=== PATIENT | female | born 1960 | race Caucasian/White ===

== ENCOUNTER → 2018-01-26 15:56 | Outpatient (CLI) | payer OTHER, SELFPAY ==
[2018-01-05 11:52] VITALS: BMI 29.2
--- NOTE | 2018-01-26 16:02 | BI_ITS ---
MAMMOGRAPHY - BILATERAL SCREENING REASON FOR EXAM: Female, 58 years old. Routine annual screening examination. PERTINENT HISTORY: Non-contributory. TECHNIQUE: Digital bilateral breast raymon (3D mammographic acquisition) in the CC and MLO projections. 2-D mediolateral oblique (MLO) and craniocaudad (CC) views of both breasts were obtained. CAD: Full Field Digital Mammography with Computer Added Detection was performed. COMPARISON: Comparison is made with prior study dated January 24, 2017 and December 27, 2015. FINDINGS: Breast Composition: There are scattered areas of fibroglandular density. There are no dominant masses or suspicious calcifications. Stable appearance of the bilateral axillary lymph nodes. No other significant abnormalities are identified. There has been no significant change since the prior study. BI/SCREENING MAMM (CAD), BILAT IMPRESSION: Stable bilateral screening mammogram. Yearly follow-up mammogram recommended. (A) ASSESSMENT CATEGORY: BIRADS Category 2: Benign. A letter regarding these results will be sent to the patient by the facility within 30 days. Approximately 10% of breast cancers are not detected by mammography. A normal mammogram should not delay biopsy of a clinically suspicious abnormality. [id number] Electronically Signed: Trenton Fuentes MD at 14:21 EST Tel [phone], Service support ,
== END ==
PROVIDERS: Family Provider Family Medicine; PCP Family Medicine; Referring Provider Obstetrics & Gynecology; Visit Provider Obstetrics & Gynecology
DX: Z12.31 Encounter for screening mammogram for malignant neoplasm of breast (principal)
CPT/HCPCS: 77063; 77067

== ENCOUNTER 2018-05-19 06:25 | Day surgery (SDC) | payer OTHER, SELFPAY ==
--- NOTE | 2018-05-15 12:22 | EKG12_ITS ---
Test Reason : PREOP Blood Pressure : / mmHG Vent. Rate : 063 BPM Atrial Rate : 063 BPM P-R Int : 174 ms QRS Dur : 098 ms QT Int : 422 ms P-R-T Axes : 070 061 037 degrees QTc Int : 431 ms Normal sinus rhythm Normal ECG Confirmed by TAYLER ROME, GRACIELA ([id number]), multimedia editor ROMÁN SYKES ([id number]) on 05/19/2018 9:46:17 AM Referred By: Sonal Ingram Confirmed By:GRACIELA LESTER MD
[2018-05-19] MEDS: Cefazolin 2 GM in 0.9% Normal Saline 100 ML IV (07:00)
[2018-05-19 07:01] VITALS: BP 124/92; PULSE 68; RESP 14; TEMP 36.5; O2SAT 97; BMI 29.7
[2018-05-19 09:11] VITALS: BP 123/86; BP 124/92; PULSE 68; RESP 16; TEMP 36.6; O2SAT 95
[2018-05-19 09:15] VITALS: BP 124/92; BP 129/86; PULSE 66; RESP 18; O2SAT 97
--- NOTE | 2018-05-19 09:19 | DCINST_ITS ---
Discharge Diet: No Restrictions Discharge Activity: May not drive while taking narcotic pain medications., May Shower Lifting Restrictions: 5 pounds Additional Activity Instructions:: no strenuous activity, no exercise, no intercourse, nothing per vagina except continue estrogen cream as instructed Call your doctor if your incision/area has: Continuous Slow Oozing, Sudden Increased Bleeding, Foul Smelling Discharge Call your doctor if you observe: Fever of 101 or Higher, Inability to urinate, Inability to have a bowel movement, Shortness of breath, Chest pain, Calf discomfort Suture Line Care: Avoid Pulling/Pushing, Avoid Pinching/Bending Allergies/Adverse Reactions: Allergies No Known Allergies Allergy (Verified 01/05/18 11:53) Medications to take at Discharge Calcium (Elemental) [Os-Jovi 500] 500 mg PO DAILY@0800 05/13/18 Cholecalciferol (VIT D3) [Vitamin D3] 1,000 unit PO DAILY 05/13/18 Estradiol [Estrace Vaginal Cream] 1 dose VAGINAL MOWEFR 05/13/18 Multivit with Calcium,Iron,Min [Multiple Vitamins For Women] 1 each PO DAILY 05/13/18 Rizatriptan Benzoate [Maxalt] 10 mg PO PRN PRN 05/13/18 Sulfamethoxazole/Trimethoprim [Bactrim Ds Tablet] 1 each PO BID 05/13/18 Oxycodone HCl/Acetaminophen [Percocet 5/325] 1 - 2 tab PO Q6H PRN PRN 7 Days #30 tab 05/19/18 The following prescriptions were given: Oxycodone HCl/Acetaminophen [Percocet 5/325] 1 - 2 tab PO Q6H PRN PRN 7 Days #30 tab PRN Reason: Pain Orders to be completed after discharge: 12 Lead EKG [[facility]] Time Frame: 05/13/18, Facility: [facility], Location: Cardi[facility] Services Post Void Residual Bladder [[place]] Location: None Selected Primary Care Physician: Jason Jimenez DO [Primary Care Provider] - Test Results: Test results from this visit will be discussed in further detail at your follow- up appointment, if applicable. Please Follow Up With: Sonal Ingram MD When: 2 weeks, call for appt. Proposed Discharge Date: 05/19/18
--- NOTE | 2018-05-19 09:21 | OP.PCM_ITS ---
Problem List (1) Urethral hypermobility Status: Acute (2) Stress incontinence Status: Acute Report of Operation Date of Procedure: 05/19/18 Pre-Operative Diagnosis: stress urinary incontinence, urethral hypermobility Post-Operative Diagnosis: same Surgery/Procedure Performed:: midurethral sling, cystoscopy Description of Surgical Findings:: no complications, no mesh in bladder or urethra at conclusion of case. Type of Anesthesia:: General Special Medications: Ancef Specimen's removed: none Estimated Blood Loss (mL): 75cc Description of Procedure: The patient is a 58-year-old female presented to the office with complaints of significant urinary incontinence. She underwent evaluation with pelvic exam, cystoscopy and urodynamic studies. At this time we discussed the options and she agreed to proceed with surgical intervention for definitive treatment of her incontinence. All risks benefits and alternatives were discussed preoperatively and informed consent was obtained. Patient was taken to the operating room and placed on the operating room table. She was padded and supported appropriately. Anesthesia monitored the head, neck, airway, IV access, vital signs throughout the case. Once anesthesia was appropriately administered the patient was prepped and draped in usual sterile fashion. She was placed into dorsal lithotomy and Trendelenburg position. A 16 Swedish Youngblood catheter was inserted and the bladder was drained. The mid urethra was identified and injected submucosally with lidocaine with epinephrine. A midline vertical incision approximately 1 cm in length was then made. Both sharp and blunt dissection ensued until the space on either side of the urethra was open appropriately for passage of the sling and trochars. At this time the alters sling and trochars were passed without difficulty. The sling was flat against the urethra without excess tension. This was done using the tensioning suture and a right angle clamp. The midline incision was then closed using r unning interlocking 2-0 Vicryl. The vagina the Youngblood catheter was removed and a cystourethroscopy was 70 degree lens was performed. There were no foreign bodies seen within the urinary bladder or the urethra. The bladder mucosa and the urethral mucosa were visualized in their entirety. There were no masses, ulcerations, foreign bodies or hemorrhage from any area. A small amount of fluid was left within the urinary bladder and the patient was awakened and taken to the recovery room in good condition. There were no complications during this procedure. Grafts/Implants Used: Altis midurethral sling - Complications none - Admit VTE Documentation VTE Present on Admission: Yes VTE Mechan Device Prophylaxis: SCD's VTE Pharm Prophylaxis ordered?: No Reason prophylaxis not ordered:: Treatment Not Indicated
[2018-05-19 09:30] VITALS: BP 124/92; BP 134/86; PULSE 57; RESP 18; TEMP 36.2; O2SAT 98
[2018-05-19] MEDS: HYDROcodone Bitartrate/Apap 5/325 Tablet PO (10:43)
[2018-05-19 11:13] VITALS: BP 124/92; BP 134/73; PULSE 65; RESP 14; TEMP 37.3; O2SAT 98
== END 2018-05-19 11:32 | disposition home or self-care (01) ==
LOC: SDC 06:25 → AC 06:26
PROVIDERS: Family Provider Family Medicine; PCP Family Medicine; Referring Provider Urology; Visit Provider Urology
PROC: 0TJB8ZZ Inspection of Bladder, Via Natural or Artificial Opening Endoscopic (ICD-10-PCS; CPT 57288; principal; 2018-05-19 07:50)
DX: N39.3 Stress incontinence (female) (male) (principal); N36.41 Hypermobility of urethra; N95.2 Postmenopausal atrophic vaginitis; Z79.2 Long term (current) use of antibiotics; Z79.899 Other long term (current) drug therapy
CPT/HCPCS: 00860; 57288; 93005; J7120; J2405

== ENCOUNTER → 2019-02-01 07:36 | Outpatient (CLI) | payer OTHER, SELFPAY ==
--- NOTE | 2019-02-01 07:39 | BI_ITS ---
MAMMOGRAPHY - BILATERAL SCREENING 3-D TOMOSYNTHESIS REASON FOR EXAM: Female, 59 years old. Yearly screening mammogram. PERTINENT HISTORY: No significant family history. TECHNIQUE: 2-D mammograms and 3-D Tomosynthesis of the breast (s) were performed. CAD was performed. COMPARISON: January 26, 2018, January 24, 2017 FINDINGS: The breast composition is composed of scattered fibroglandular density. Scattered benign calcifications are seen. No dense spiculated masses or suspicious microcalcifications are identified. No architectural distortion is identified. There is no skin thickening or retraction. There has been no significant change since the prior study. BI/SCREEN MAMM (CAD) W/SARAH BILAT IMPRESSION: No mammographic signs of malignancy. Routine yearly mammograms recommended. ASSESSMENT CATEGORY: BIRADS Category 2: Benign. A letter regarding these results will be sent to the patient by the facility within 30 days. FOLLOW UP RECOMMENDATION: Yearly follow up mammogram recommended. (A) Approximately 10% of breast cancers are not detected by mammography. A normal mammogram should not delay biopsy of a clinically suspicious abnormality. Electronically Signed: Eusebio Ojeda MD at 17:24 EST , Service support ,
== END ==
PROVIDERS: Family Provider Family Medicine; PCP Family Medicine; Referring Provider Obstetrics & Gynecology; Visit Provider Obstetrics & Gynecology
DX: Z12.31 Encounter for screening mammogram for malignant neoplasm of breast (principal)
CPT/HCPCS: 77063; 77067

== ENCOUNTER → 2019-02-16 08:13 | Outpatient (CLI) | payer OTHER, SELFPAY ==
[2019-02-01 08:29] VITALS: BMI 29.7
[2019-02-16 12:27] LABS: ALB/GLOB Ratio 1.3 RATIO (0.9-2.4); AST(SGOT) 17 U/L (15-37); Alanine Aminotransfer ALT/SGPT 25 U/L (13-56); Albumin, Serum 3.7 g/dL (3.2-5.0); Alkaline Phosphatase 60 U/L (45-117); Anion Gap 3 (5-15); BUN 17 mg/dL (7-18); BUN/Creat Ratio 18.1 RATIO (10-20); Calcium,Total 8.8 mg/dL (8.5-10.1); Chloride 109 mmol/L (98-107); Cholesterol 213 mg/dL (200); Creatinine, Serum 0.94 mg/dL (0.55-1.02); EST Glomerular Filtration Rate 65 mL/min (>60); Est Glom Filt Rate - Afr Amer 78 mL/min (>60); Globulin 2.8 g/dL (2.2-4.2); Glucose 76 mg/dL (74-106); High Density Lipoprotein 49 mg/dL; Potassium 4.1 mmol/L (3.5-5.1); Protein, Total 6.5 g/dL (6.4-8.2); Sodium Level 142 mmol/L (136-145); Triglycerides 92 mg/dL; Very Low Density Lipoprotein 18 mg/dL (5-40)
[2019-02-16 12:35] LABS: Vitamin D,25 Hydroxy 25.5 ng/mL (29.95-100.01)
[2019-02-16 12:39] LABS: Absolute Lymphocyte Count 1.31 X10^3/uL (0.83-4.51); Absolute Neutrophil Count 3.8 X10^3/uL (2.0-7.7); Basophil# 0.04 X10^3/uL; Basophil% 0.7 % (0-1); Eosinophil# 0.18 X10^3/uL; Eosinophils% 3.1 % (0-5); Hematocrit 42.2 % (37-47); Hemoglobin 13.4 g/dL (12.0-15.0); Lymphocyte # 1.31 X10^3/ul (4.0); Lymphocyte % 22.4 % (19-41); Mean Corp Hgb Conc 31.8 g/dL (32-36); Mean Corpuscular Hgb 30.8 pg (27.0-32.0); Mean Platelet Vol. 9.8 fl (6.2-12.0); Monocyte# 0.48 X10^3/uL; Monocyte% 8.2 % (0-10); NRBC Flagged by Analyzer 0 % (0-5); Neutrophil # 3.82 X10^3/uL (2.7-7.7); Neutrophil % 65.4 % (47-70); Platelet Count 232 K/mm3 (150-450); RBC Distribution Width SD 50.5 fl (35.1-43.9); Red Blood Count 4.35 M/mm3 (4.2-5.4); White Blood Count 5.8 K/mm3 (4.4-11.0)
== END ==
PROVIDERS: Family Provider Family Medicine; PCP Family Medicine; Visit Provider Family Medicine
DX: Z00.00 Encounter for general adult medical examination without abnormal findings (principal); M85.80 Other specified disorders of bone density and structure, unspecified site
CPT/HCPCS: 36415; 80053; 80061; 82306; 85025

== ENCOUNTER → 2019-03-25 09:09 | Outpatient (CLI) | payer OTHER, SELFPAY ==
[2019-02-01 08:29] VITALS: BMI 29.7
--- NOTE | 2019-03-25 09:14 | BD_ITS ---
STUDY: DUAL ENERGY X-RAY ABSORPTIOMETRY / DXA REASON FOR EXAM: Female, 59 years old. RNP -- HX OF HRT -- TAKES CALCIUM, MULTIVITAMIN AND VITAMIN D -- DOES MODERATE AMOUNT OF EXERCISE -- FAMILY HX OF OSTEO -- NO JERAMY TECHNIQUE: Bone Mineral Density (BMD) measurements of lumbar spine and bilateral hips were obtained. COMPARISON: None. FINDINGS: Lumbar Spine (L1-L4): g/cm2 (0.912) / T-score (-2.2) / Z-score (-1.0) Findings are suggestive of osteopenia with a moderate fracture risk. Left Femur Total: g/cm2 (0.849) / T-score (-1.3) / Z-score (-0.3) Left Femoral Neck: g/cm2 (0.797) / T-score (-1.7) / Z-score (-0.5) Right Femur Total: g/cm2 (0.780) / T-score (-1.8) / Z-score (-0.9) Right Femoral Neck: g/cm2 (0.751) / T-score (-2.1) / Z-score (-0.8) BD/Dexa Bone Density Study IMPRESSION: The patient is considered osteopenic as outlined below according to World Aidan Organization (WHO) criteria with a moderate fracture risk. Reference Information: The T-score is the number of standard deviations above or below the standard which is normal for young adults at their peak bone mineral density. The World Health Organization (WHO) interprets the T-scores as follows: Above -1 Normal bone density Between -1 and -2.5 Osteopenia Equal to / or below -2.5 Osteoporosis As a practical clinical guideline, osteopenia may be graded as follows: Mild -1 through -1.5 Moderate -1.6 through -2.0 Severe -2.1 through -2.4 The Z-score is the number of standard deviations above or below age-matched controls. A Z-score of less than -1.5 would be considered abnormal. References: 1. NIH Osteoporosis and Related Bone Diseases http://www.osteo.org 2. International Society for Clinical Densitometry http://www.iscd.org 3. National Osteoporosis Foundation http://www.nof.org Electronically Signed: Trenton Fuentes, at 13:20 EST , Service support ,
== END ==
PROVIDERS: Family Provider Family Medicine; PCP Family Medicine; Referring Provider Family Medicine; Visit Provider Family Medicine
DX: M81.0 Age-related osteoporosis without current pathological fracture (principal); M85.80 Other specified disorders of bone density and structure, unspecified site; E55.9 Vitamin D deficiency, unspecified
CPT/HCPCS: 77080

== ENCOUNTER → 2020-01-03 18:06 | Outpatient (CLI) | payer OTHER, SELFPAY ==
[2019-02-01 08:29] VITALS: BMI 29.7
== END ==
PROVIDERS: PCP Family Medicine; Referring Provider Family Medicine; Visit Provider Family Medicine
DX: Z03.818 Encounter for observation for suspected exposure to other biological agents ruled out (principal)
CPT/HCPCS: 87635; C9803; U0003

== ENCOUNTER 2021-04-24 14:26 | Outpatient (CLI) | payer OTHER, SELFPAY | END 2021-04-24 23:59 | disposition home or self-care (01) | LOC: IMMUN 04-25 14:38 | PROVIDERS: PCP Family Medicine; Visit Provider Family Medicine | DX: Z23 Encounter for immunization (principal) ==

== ENCOUNTER → 2022-07-11 | Outpatient (CLI) | payer OTHER, SELFPAY ==
[2022-07-11 15:25] LABS: Absolute Lymphocyte Count 1.82 X10^3/uL (0.83-4.51); Absolute Neutrophil Count 4.8 X10^3/uL (2.0-7.7); Basophil# 0.03 X10^3/uL; Basophil% 0.4 % (0-1); Eosinophil# 0.24 X10^3/uL; Eosinophils% 3.2 % (0-5); Hematocrit 45.8 % (37-47); Hemoglobin 14.7 g/dL (12.0-15.0); Lymphocyte # 1.82 X10^3/ul (0.83-4.51); Lymphocyte % 24.1 % (19-41); Mean Corp Hgb Conc 32.1 g/dL (32-36); Mean Corpuscular Volume 96.6 fL (81-99); Mean Platelet Vol. 9.9 fl (6.2-12.0); Monocyte# 0.68 X10^3/uL; NRBC Flagged by Analyzer 0 % (0-5); Neutrophil # 4.75 X10^3/uL (2.7-7.7); Platelet Count 301 K/mm3 (150-450); RBC Distribution Width CV 14.1 % (11.6-14.6); RBC Distribution Width SD 50.7 fl (35.1-43.9); Red Blood Count 4.74 M/mm3 (4.2-5.4); White Blood Count 7.5 K/mm3 (4.4-11.0)
[2022-07-11 15:34] LABS: Color, Urine Yellow (Yellow); Glucose, Dipstick Normal (Normal); Ketone-Dipstick Negative (Negative); Leukocyte Esterase-Dipstick Negative /ul (Negative); Nitrite-Dipstick Negative (Negative); Occult Blood-Urine 10 /ul (Negative); Protein-Dipstick 15 mg/dl (Negative); Urine Bilirubin Dipstick Negative (Negative); Urine Clarity Clear (Clear); Urine Urobilinogen Normal (Normal)
[2022-07-11 15:47] LABS: ALB/GLOB Ratio 1.3 RATIO (0.9-2.4); AST(SGOT) 17 U/L (15-37); Alanine Aminotransfer ALT/SGPT 28 U/L (13-56); Alkaline Phosphatase 66 U/L (45-117); Anion Gap 9 (5-15); BUN 18 mg/dL (7-18); BUN/Creat Ratio 20.7 RATIO (10-20); Calcium,Total 9.4 mg/dL (8.5-10.1); Chloride 106 mmol/L (98-107); Cholesterol 212 mg/dL (200); Creatinine, Serum 0.87 mg/dL (0.55-1.02); EST Glomerular Filtration Rate 70 mL/min (>60); Est Glom Filt Rate - Afr Amer 84 mL/min (>60); Globulin 3.1 g/dL (2.2-4.2); Glucose 88 mg/dL (74-106); High Density Lipoprotein 41 mg/dL; Potassium 4.2 mmol/L (3.5-5.1); Protein, Total 7.1 g/dL (6.4-8.2); Sodium Level 142 mmol/L (136-145); Triglycerides 239 mg/dL; Very Low Density Lipoprotein 48 mg/dL (5-40)
== END | disposition home or self-care (01) ==
LOC: BFHLAB 13:05
PROVIDERS: PCP Family Medicine; Referring Provider Family Medicine; Visit Provider Family Medicine
DX: Z00.00 Encounter for general adult medical examination without abnormal findings (principal)
CPT/HCPCS: 36415; 80053; 80061; 81002; 85025

== ENCOUNTER → 2023-01-21 | Outpatient (CLI) | payer OTHER, SELFPAY ==
--- NOTE | 2023-01-21 09:18 | RAD_ITS ---
INDICATION: R TOE PAIN EXAMINATION/TECHNIQUE: X-RAY - RIGHT FOOT XR Toes Min 2 Views COMPARISON: None. FINDINGS: Subacute minimally displaced fracture of the head of the fifth metacarpal. No blastic or lytic lesions. Mild scattered degenerative changes. Soft tissue swelling of the fifth digit. RAD/Toe(s) Min 2 Views IMPRESSION: Subacute minimally displaced fracture of the head of the fifth metacarpal. Electronically Signed: Wally Eckert MD at 21:58 EST ,
--- NOTE | 2023-01-21 09:18 | RAD_ITS ---
ACR Level 3 findings have been noted. An addendum which confirms receipt of the report will follow. INDICATION: PAIN X 10 DAYS, TRAUMA EXAMINATION/TECHNIQUE: X-RAY - RIGHT XR Foot Min 3 Views COMPARISON: None. FINDINGS: Subacute minimally displaced fracture of the head of the fifth metacarpal. No blastic or lytic lesions. Mild scattered degenerative changes. Soft tissue swelling of the fifth digit. RAD/Foot min 3 Views IMPRESSION: Subacute minimally displaced fracture of the head of the fifth metacarpal. Electronically Signed: Wally Eckert MD at 21:57 EST ,
== END | disposition home or self-care (01) ==
LOC: MTRAD 08:42
PROVIDERS: PCP Family Medicine; Referring Provider Family Medicine; Visit Provider Family Medicine
DX: M79.674 Pain in right toe(s) (principal)
CPT/HCPCS: 73630; 73660

== ENCOUNTER → 2023-03-06 | Outpatient (CLI) | payer OTHER, SELFPAY ==
--- NOTE | 2023-03-06 13:32 | BI_ITS ---
MAMMOGRAPHY - BILATERAL SCREENING 3-D TOMOSYNTHESIS REASON FOR EXAM: Female, 63 years old. Routine annual screening mammogram. PERTINENT HISTORY: No significant family history. TECHNIQUE: 2-D mammograms and 3-D Tomosynthesis of the breast (s) were performed. CAD was performed. COMPARISON: February 01, 2019, January 26, 2018 FINDINGS: The breast composition is composed of scattered fibroglandular density. Normal axillary lymph nodes and benign calcifications are stable. No dominant masses, suspicious microcalcifications, asymmetries, skin thickening or nipple retraction. BI/SCRN MAMM (CAD)W/SARAH BILAT IMPRESSION: No interval change mammographic signs of malignancy. Routine yearly mammogram recommended. ASSESSMENT CATEGORY: BIRADS Category 1: Negative. A letter regarding these results will be sent to the patient by the facility within 30 days. FOLLOW UP RECOMMENDATION: Yearly follow up mammogram recommended. (A) Approximately 10% of breast cancers are not detected by mammography. A normal mammogram should not delay biopsy of a clinically suspicious abnormality. Electronically Signed: Eusebio Ojeda MD at 15:24 EST ,
--- NOTE | 2023-03-06 13:35 | BD_ITS ---
STUDY: DUAL ENERGY X-RAY ABSORPTIOMETRY / DXA REASON FOR EXAM: Female, 63 years old. Osteopenia -- AGE RELATED OSTEP W/O CURRENT PATHOLOGICAL FRACTURE TECHNIQUE: Bone Mineral Density (BMD) measurements of lumbar spine and bilateral hips were obtained. COMPARISON: Comparison is made with prior study dated September 23, 2019. FINDINGS: Lumbar Spine (L1-L4): g/cm2 (0.724) / T-score (-2.9) / Z-score (-1.2) Findings are suggestive of osteoporosis with a high fracture risk. Left Femur Total: g/cm2 (0.778) / T-score (-1.3) / Z-score (-0.2) Left Femoral Neck: g/cm2 (0.648) / T-score (-1.8) / Z-score (-0.3) Right Femur Total: g/cm2 (0.719) / T-score (-1.8) / Z-score (-0.7) Right Femoral Neck: g/cm2 (0.559) / T-score (-2.6) / Z-score (-1.2) The T-Scores on the most recent prior examination were: Lumbar Spine (L1-L4): There has been worsening of bone density since the previous examination. Left Femur Total: which represents a worsening of 1.3%. Right Femur Total: which represents a worsening of 0.1%. BD/Dexa Bone Density Study IMPRESSION: The patient is considered osteoporotic as outlined below according to World Aidan Organization (WHO) criteria with a high fracture risk. There has been worsening of bone density since the previous examination. Reference Information: The T-score is the number of standard deviations above or below the standard which is normal for young adults at their peak bone mineral density. The World Health Organization (WHO) interprets the T-scores as follows: Above -1 Normal bone density Between -1 and -2.5 Osteopenia Equal to / or below -2.5 Osteoporosis As a practical clinical guideline, osteopenia may be graded as follows: Mild -1 through -1.5 Moderate -1.6 through -2.0 Severe -2.1 through -2.4 The Z-score is the number of standard deviations above or below age-matched controls. A Z-score of less than -1.5 would be considered abnormal. References: 1. NIH Osteoporosis and Related Bone Diseases www osteo.org 2. International Society for Clinical Densitometry www iscd.org 3. National Osteoporosis Foundation www nof.org Electronically Signed: Trenton Fuentes MD at 15:33 EST ,
== END | disposition home or self-care (01) ==
LOC: OPBD 13:27
PROVIDERS: PCP Family Medicine; Referring Provider Obstetrics & Gynecology; Visit Provider Obstetrics & Gynecology
DX: Z12.31 Encounter for screening mammogram for malignant neoplasm of breast (principal); M85.80 Other specified disorders of bone density and structure, unspecified site
CPT/HCPCS: 77063; 77067; 77080

== ENCOUNTER → 2023-10-29 | Outpatient (CLI) | payer OTHER, SELFPAY ==
[2023-10-29 10:20] LABS: Erythrocyte Sedimentation Rate < 1 mm/hr (0-30)
[2023-10-29 10:23] LABS: Absolute Lymphocyte Count 0.94 X10^3/uL (0.83-4.51); Absolute Neutrophil Count 7.2 X10^3/uL (2.0-7.7); Basophil# 0.02 X10^3/uL; Basophil% 0.2 % (0-1); Eosinophil# 0.01 X10^3/uL; Eosinophils% 0.1 % (0-5); Hematocrit 43.5 % (37-47); Hemoglobin 13.8 g/dL (12.0-15.0); Lymphocyte # 0.94 X10^3/ul (0.83-4.51); Lymphocyte % 11.1 % (19-41); Mean Corp Hgb Conc 31.7 g/dL (32-36); Mean Corpuscular Hgb 30.4 pg (27.0-32.0); Mean Corpuscular Volume 95.8 fL (81-99); Mean Platelet Vol. 9.6 fl (6.2-12.0); Monocyte% 3.5 % (0-10); NRBC Flagged by Analyzer 0 % (0-5); Neutrophil # 7.18 X10^3/uL (2.7-7.7); Neutrophil % 84.6 % (47-70); Platelet Count 297 K/mm3 (150-450); RBC Distribution Width CV 14.2 % (11.6-14.6); RBC Distribution Width SD 50.2 fl (35.1-43.9); Red Blood Count 4.54 M/mm3 (4.2-5.4); White Blood Count 8.5 K/mm3 (4.4-11.0)
[2023-10-29 11:00] LABS: ALB/GLOB Ratio 1.3 RATIO (0.9-2.4); AST(SGOT) 14 U/L (15-37); Alanine Aminotransfer ALT/SGPT 24 U/L (13-56); Albumin, Serum 3.8 g/dL (3.2-5.0); Alkaline Phosphatase 56 U/L (45-117); Anion Gap 4 (5-15); BUN 17 mg/dL (7-18); BUN/Creat Ratio 19.6 RATIO (10-20); CRP 3.33 mg/L (0.0-3.0); Calcium,Total 8.9 mg/dL (8.5-10.1); Chloride 110 mmol/L (98-107); Cholesterol 221 mg/dL (200); Creatinine, Serum 0.87 mg/dL (0.55-1.02); EST Glomerular Filtration Rate 70 mL/min (>60); Est Glom Filt Rate - Afr Amer 84 mL/min (>60); Globulin 2.9 g/dL (2.2-4.2); Glucose 122 mg/dL (74-106); High Density Lipoprotein 47 mg/dL; Potassium 4.2 mmol/L (3.5-5.1); Protein, Total 6.7 g/dL (6.4-8.2); Sodium Level 141 mmol/L (136-145); Triglycerides 108 mg/dL; Very Low Density Lipoprotein 22 mg/dL (5-40)
[2023-10-29 16:14] LABS: Hemoglobin A1c 5.4 % (3.8-5.6)
== END | disposition home or self-care (01) ==
PROVIDERS: PCP Family Medicine; Referring Provider Nurse Practitioner Family; Visit Provider Nurse Practitioner Family
DX: I10 Essential (primary) hypertension (principal); E78.5 Hyperlipidemia, unspecified; M79.7 Fibromyalgia; R73.01 Impaired fasting glucose
CPT/HCPCS: 36415; 80053; 80061; 83036; 85025; 85652; 86140

== ENCOUNTER → 2023-12-08 | Outpatient (CLI) | payer OTHER, SELFPAY ==
--- NOTE | 2023-12-08 16:00 | CT_ITS ---
STUDY: CT RIGHT FOOT REASON FOR EXAM: Female, 63 years old. Primary osteoarthritis, right ankle and foot. RADIATION DOSAGE (If Supplied By Facility): CTDIvol = ( 15.35 ) mGy, DLP = ( 465.06 ) mGycm TECHNIQUE: Thin section transaxial imaging of the right foot was obtained, with sagittal and coronal reconstructed images. Individualized dose optimization techniques were used for this CT. COMPARISON: Right foot radiographs dated 01/21/2023. FINDINGS: Normal distal tibia and fibula. Intact talus, calcaneus, and tarsal bones. There is a tiny plantar calcaneal spur. Normal visualized tibiotalar, subtalar, talonavicular, calcaneocuboid, tarsal and tarsometatarsal articulations. There is an old healed fracture of the fifth metatarsal neck. Normal remainder of the metatarsi. There is mild degenerative arthrosis at the first MTP joint with mild marginal osteophyte formation. There is a bipartite tibial hallux sesamoid. Normal fibular hallux sesamoid. Normal interphalangeal joint of the great toe. Normal phalanges of the great toe. Normal second through fifth metatarsophalangeal joints. Normal interphalangeal joints and phalanges of the lesser toes. There is no demonstrated fracture. There are prominent varices in the medial subcutaneous fat of the upper ankle. CT/Extremity Lower without Contra IMPRESSION: Mild degenerative arthrosis at the first MTP joint. Tiny plantar calcaneal spur. Old healed fracture of the fifth metatarsal neck. Electronically Signed: Vadim Dunbar MD at 8:20 EDT ,
== END | disposition home or self-care (01) ==
LOC: CT 15:58
PROVIDERS: PCP Family Medicine; Referring Provider Podiatrist Foot & Ankle Surgery; Visit Provider Podiatrist Foot & Ankle Surgery
DX: M19.071 Primary osteoarthritis, right ankle and foot (principal)
CPT/HCPCS: 73700

== ENCOUNTER → 2024-03-04 | Outpatient (CLI) | payer OTHER, SELFPAY ==
--- NOTE | 2024-03-04 15:17 | MRI_ITS ---
STUDY: MRI LUMBAR SPINE WITHOUT CONTRAST REASON FOR EXAM: Female, 64 years old. RADICULOPATHY, LBP, LT LEG WEAKNESS/ PAIN TECHNIQUE: Standardized fat and water weighted pulse sequences were obtained in the sagittal and axial planes. COMPARISON: MR lumbar spine December 20, 2016. FINDINGS: T12-L1: Normal endplates. Normal disc height, hydration and morphology. Normal bilateral facet joints. Normal central canal and bilateral lateral recesses. Normal bilateral intervertebral neural foramina. Normal lumbar lordosis. There is no substantial scoliosis. Normal conus medullaris that terminates at the L1-2 level. L1-2: Normal endplates. Normal disc height, hydration and morphology. Normal bilateral facet joints. Normal central canal and bilateral lateral recesses. Normal bilateral intervertebral neural foramina. L2-3: Normal endplates. Normal disc height, hydration and morphology. Hypertrophic bilateral facet joints. Normal central canal and bilateral lateral recesses. Normal bilateral intervertebral neural foramina. L3-4: Mild annular bulge.. Normal disc height, hydration and morphology. Hypertrophic bilateral facet joints. Normal central canal and bilateral lateral recesses. Narrowed bilateral intervertebral neural foramina. L4-5: Normal endplates. Normal disc height, hydration and morphology. Hypertrophic bilateral facet joints. Normal central canal and bilateral lateral recesses. Narrowed bilateral intervertebral neural foramina. L5-S1: Normal endplates. Normal disc height, hydration and morphology. Normal bilateral facet joints. Normal central canal and bilateral lateral recesses. Normal bilateral intervertebral neural foramina. Normal visualized sacral ala. Normal visualized paraspinous soft tissue structures. MRI/Spine Lumbar (Routine) IMPRESSION: Moderate narrowing of the neural foramen at L3-4 and L4-5. No significant interval change. Electronically Signed: Jon Munoz MD at 0:12 EST ,
== END | disposition home or self-care (01) ==
LOC: MRI 15:15
PROVIDERS: PCP Family Medicine; Referring Provider Family Medicine; Visit Provider Family Medicine
DX: M51.26 Other intervertebral disc displacement, lumbar region (principal); M54.16 Radiculopathy, lumbar region; G89.29 Other chronic pain
CPT/HCPCS: 72148

== ENCOUNTER → 2024-05-10 | Outpatient (CLI) | payer OTHER, SELFPAY ==
--- NOTE | 2024-05-10 15:06 | BI_ITS ---
PROCEDURE: SCRN MAMM (CAD)W/SARAH BILAT REASON FOR EXAM: F, Age 64 y/o, presents for annual screening mammogram. No family history of breast cancer. TECHNIQUE: Bilateral screening digital breast tomosynthesis with 2D and 3D images. Computer aided detection. COMPARISON: 03/06/2023 FINDINGS: There are scattered areas of fibroglandular density. No suspicious masses, areas of developing architectural distortion, or suspicious calcifications. BI/SCRN MAMM (CAD)W/SARAH BILAT IMPRESSION: There is no mammographic evidence of malignancy. BI-RADS 1: NEGATIVE. RECOMMEND ANNUAL MAMMOGRAPHIC SCREENING. Follow-up code: Routine Follow-up. The patient will be notified of the results by letter. Reading Location: [id number]
== END | disposition home or self-care (01) ==
LOC: OPBI 15:04
PROVIDERS: PCP Family Medicine; Referring Provider Obstetrics & Gynecology; Visit Provider Obstetrics & Gynecology
DX: Z12.31 Encounter for screening mammogram for malignant neoplasm of breast (principal)
CPT/HCPCS: 77063; 77067